=== PATIENT | female | born 1985 | race Two or more races ===

== ENCOUNTER 2019-09-15 12:13 | Outpatient (CLI) | payer OTHER ==
[~2019-09-15] VITALS: Ht 180.3 cm; Wt 72.6 kg
[2019-09-15] MEDS ORDERED: FLONASE ALLERG9.9 ML NASAL (12:53)
[2019-09-15] MEDS ORDERED: SUDAFED 24-HOU240 MG PO (12:55)
== END 2019-09-15 15:35 | disposition home or self-care (01) ==
LOC: OFIC 805 12:13
PROVIDERS: ATTEND Otolaryngology Otology & Neurotology
DX: H91.8X2 Other specified hearing loss, left ear (principal); H65.02 Acute serous otitis media, left ear

== ENCOUNTER 2019-10-13 13:11 | Outpatient (CLI) | payer OTHER ==
[~2019-10-13 13:11] MED LIST: FLONASE ALLERG9.9 ML NASAL; SUDAFED 24-HOU240 MG PO
== END 2019-10-13 14:00 | disposition home or self-care (01) ==
LOC: OFIC 805 13:11
PROVIDERS: ATTEND Otolaryngology Otology & Neurotology
DX: H65.22 Chronic serous otitis media, left ear (principal); H90.12 Conductive hearing loss, unilateral, left ear, with unrestricted hearing on the contralateral side

== ENCOUNTER 2019-11-12 07:00 | Day surgery (SDC) | payer OTHER ==
[2019-11-12] MEDS ORDERED: CIPRODEX OTIC7.5 ML OT ×2 (16:04→16:08)
== END 2019-11-12 13:00 | disposition home or self-care (01) ==
LOC: CIR.AMB 07:00
PROVIDERS: ATTEND Otolaryngology Otology & Neurotology
DX: H90.12 Conductive hearing loss, unilateral, left ear, with unrestricted hearing on the contralateral side (principal); H65.22 Chronic serous otitis media, left ear; Z20.828 Contact with and (suspected) exposure to other viral communicable diseases

== ENCOUNTER 2019-11-24 09:07 | Outpatient (CLI) | payer OTHER ==
[~2019-11-24 09:07] MED LIST changes: +CIPRODEX OTIC7.5 ML OT
== END 2019-11-24 10:30 | disposition home or self-care (01) ==
LOC: OFIC 805 09:07
PROVIDERS: ATTEND Otolaryngology Otology & Neurotology
DX: H90.12 Conductive hearing loss, unilateral, left ear, with unrestricted hearing on the contralateral side (principal); H65.22 Chronic serous otitis media, left ear; H66.42 Suppurative otitis media, unspecified, left ear